=== PATIENT | female | born 1965 | race Caucasian/White ===

== ENCOUNTER 2017-07-07 13:20 | Inpatient (IN) | payer OTHER ==
[2017-07-07 13:42] VITALS: BMI 27.2
[2017-07-07] MEDS ORDERED: guaiFENesin/D-METHORPHAN HB 10 ML UNIT-DOSE CUPS PO PRN (15:15)
[2017-07-07] MEDS ORDERED: MAGNESIUM HYDROX 2400MG/30ML ORAL SUSPENSION 30 ML CUP PO PRN (15:15)
[2017-07-07] MEDS ORDERED: LOPERAMIDE HCL 2 MG CAPSULE PO PRN (15:15)
[2017-07-07] MEDS ORDERED: MAGNESIUM CITRATE 300 ML BOTTLE PO PRN (15:15)
[2017-07-07] MEDS ORDERED: ACETAMINOPHEN 325 MG TABLET (FP) PO PRN (15:15)
[2017-07-07] MEDS ORDERED: NICOTINE POLACRILEX 4 MG GUM BC PRN (15:15)
[2017-07-07] MEDS ORDERED: hydrOXYzine PAMOATE 50 MG CAPSULE (FP) PO PRN (15:15)
[2017-07-07] MEDS ORDERED: IBUPROFEN 400 MG TABLET (FP) PO PRN (15:15)
[2017-07-07] MEDS ORDERED: P-EPHED 60MG/TRIPROLIDI 2.5MG TABLET PO PRN (15:15)
[2017-07-07] MEDS ORDERED: chlordiazePOXIDE HCL 25 MG CAPSULE PO PRN (15:15)
[2017-07-07] MEDS ORDERED: chlordiazePOXIDE HCL 25 MG CAPSULE PO ONE (15:15)
[2017-07-07] MEDS ORDERED: MAG HYDROX/AL HYDROX/SIMETH 30 ML UNIT-DOSE CUP PO PRN (15:15)
[2017-07-07] MEDS ORDERED: MENTHOL/PHENOL 1 EACH UD MM PRN (15:15)
--- NOTE | 2017-07-07 15:15 | HP ---
"CIWA Score - CIWA Score Nausea/Vomitin Muscle Tremors: 3 Anxiety: 3 Agitation: 3 Paroxysmal Sweats: 3 Orientation: 0-Oriented Tacttile Disturbances: 1-Very Mild Itch/Numbness Auditory Disturbances: 0-None Visual Disturbances: 0-None Headache: 3-Moderate CIWA-Ar Total Score: 19 Admission ROS [facility] Chief Complaint: c/o alcohol withdrawal sx Allergies/Adverse Reactions: Allergies Allergy/AdvReac Type Severity Reaction Status Date / Time Penicillins Allergy Severe Hives Verified 07/07/17 14:41 History of Present Illness: 52 yo f with h/o opioid dependence on suboxone, last filled rx for 8mg tid yestereday which she has reportedly been taking but did not take today and has mild opioid withdrawal sx as well as ERIC as she left it at her residence. daily alcohol use with eric reported, has been here 1 year ago for detox and smokes crack cocaoien daily. PMHx HIV/AIDS, hep c, has been taking meds, HTN, did nnot take meds today., schizophrenia, has never attempted suicide no si at this time, h/o alcohol withdrawal seizures last time 1 year ago, no DTS. h/o OD x1 2 years ago. Luisa Bradshaw, 1965 Search Date: 07/07/2017 03:19:32 PM The Drug Utilization Report below displays all of the controlled substance prescriptions, if any, that your patient has filled in the last twelve months. The information displayed on this report is compiled from pharmacy submissions to the Department, and accurately reflects the information as submitted by the pharmacies. This report was requested by: Carlton Serra | Reference #: [id number] Others' Prescriptions Patient Name: Luisa Bradshaw Date: 1965 Address: [address] [place] [address] Sex: Female Rx Written Rx Dispensed Drug Quantity Days Supply Prescriber Name 07/04/2017 07/04/2017 suboxone 8 mg-2 mg sl film 90 30 Calvin Orr MD 06/01/2017 06/03/2017 suboxone 8 mg-2 mg sl film 90 30 Calvin Orr MD 04/29/2017 04/29/2017 suboxone 8 mg-2 mg sl film 90 30 Calvin Orr MD 04/01/2017 04/01/2017 suboxone 8 mg-2 mg sl film 90 30 Calvin Orr MD 02/25/2017 02/25/2017 suboxone 8 mg-2 mg sl film 42 21 Calvin Orr MD 02/25/2017 02/25/2017 suboxone 4 mg-1 mg sl film 21 21 Calvin Orr MD 02/18/2017 02/20/2017 suboxone 8 mg-2 mg sl film 20 10 Calvin Orr MD 02/18/2017 02/20/2017 suboxone 4 mg-1 mg sl film 10 10 Calvin Orr MD 01/26/2017 01/26/2017 suboxone 4 mg-1 mg sl film 21 21 Calvin Orr MD 01/26/2017 01/26/2017 suboxone 8 mg-2 mg sl film 42 21 Calvin Orr MD 12/31/2016 12/31/2016 suboxone 4 mg-1 mg sl film 21 21 Calvin Orr MD 12/31/2016 12/31/2016 suboxone 8 mg-2 mg sl film 42 21 Calvin Orr MD 12/10/2016 12/11/2016 suboxone 8 mg-2 mg sl film 42 21 Calvin Orr MD 12/10/2016 12/11/2016 suboxone 4 mg-1 mg sl film 21 21 Calvin Orr MD 11/19/2016 11/19/2016 suboxone 8 mg-2 mg sl film 42 21 Calvin Orr MD 11/19/2016 11/19/2016 suboxone 4 mg-1 mg sl film 21 21 Calvin Orr MD 10/15/2016 10/15/2016 suboxone 4 mg-1 mg sl film 21 21 Calvin Orr MD 10/15/2016 10/15/2016 suboxone 8 mg-2 mg sl film 42 21 Calvin Orr MD 10/01/2016 10/01/2016 suboxone 4 mg-1 mg sl film 14 14 Calvin Orr MD 10/01/2016 10/01/2016 suboxone 8 mg-2 mg sl film 28 14 Calvin Orr MD 09/10/2016 09/11/2016 suboxone 4 mg-1 mg sl film 14 14 Calvin Orr MD 09/10/2016 09/11/2016 suboxone 8 mg-2 mg sl film 28 14 Calvin Orr MD 07/30/2016 07/30/2016 suboxone 4 mg-1 mg sl film 30 30 [place] Exam Limitations: No Limitations - Ebola screening Have you traveled outside of the country in the last 21 days: No Have you had contact with anyone from an Ebola affected area: No Have you been sick,other than usual withdrawal symptoms: No Do you have a fever: No - Review of Systems Constitutional: Chills, Diaphoresis, Night Sweats, Weight Stable EENT: reports: Nose Congestion, Other (urti x 2 days) Respiratory: reports: No Symptoms reported Cardiac: reports: No Symptoms Reported GI: reports: Diarrhea, Nausea, Poor Appetite, Poor Fluid Intake, Abdominal cramping : reports: No Symptoms Reported Musculoskeletal: reports: No Symptoms Reported Integumentary: reports: Flushing, Sweating Neuro: reports: Headache, Numbness, Paresthesia, Seizure (1 year ago), Tingling , Tremors, Weakness Endocrine: reports: No Symptoms Reported Hematology: reports: No Symptoms Reported Psychiatric: reports: Judgement Intact, Mood/Affect Appropiate, Orientated x3, Anxious, Depressed Other Systems: Reviewed and Negative Patient History - Patient Medical History Hx Anemia: No Hx Asthma: No Hx Chronic Obstructive Pulmonary Disease (COPD): No Hx Cancer: No Hx Cardiac Disorders: No Hx Congestive Heart Failure: No Hx Hypertension: Yes Hx Hypercholesterolemia: No Hx Pacemaker: No HX Cerebrovascular Accident: No Hx Seizures: Yes (alcohol withdrawal seizure x1 year ago) Hx Dementia: No Hx Diabetes: No Hx Gastrointestinal Disorders: No Hx Liver Disease: No Hx Genitourinary Disorders: No Hx Sexually Transmitted Disorders: No Hx Renal Disease (ESRD): No Hx Thyroid Disease: No Hx Human Immunodeficiency Virus (HIV): Yes Hx Hepatitis C: Yes Hx Depression: Yes Hx Suicide Attempt: No (no si at this time) Hx Bipolar Disorder: Yes Hx Schizophrenia: Yes Other Medical History: h/o od x1 2 years ago - Patient Surgical History Past Surgical History: No Hx Neurologic Surgery: No Hx Cataract Extraction: No Hx Cardiac Surgery: No Hx Lung Surgery: No Hx Breast Surgery: No Hx Breast Biopsy: No Hx Abdominal Surgery: No Hx Appendectomy: No Hx Cholecystectomy: No Hx Genitourinary Surgery: No Hx Section: No Hx Orthopedic Surgery: No Anesthesia Reaction: No - PPD History Previous Implant?: No Date: 08/04/15 Results: 0.00 PPD to be Administered?: Yes - Reproductive History Patient is a Female of Child Bearing Age (11 -55 yrs old): Yes Last Menstrual Period: 12/12/15 Patient : No - Smoking Cessation Smoking history: Current every day smoker Have you smoked in the past 12 months: Yes Aproximately how many cigarettes per day: 20 Cigars Per Day: 20 Hx Chewing Tobacco Use: No Initiated information on smoking cessation: No 'Breaking Loose' booklet given: 07/07/17 - Substance & Tx. History Hx Alcohol Use: Yes Hx Substance Use: Yes Substance Use Type: Alcohol, Cocaine, Heroin, Opiates Hx Substance Use Treatment: Yes ([facility] live in residence, on suxboxone maintenance treatment) - Substances Abused Alcohol Route: Oral Frequency: Daily Amount used: liquor- 1 pint, beer- 1 six pack Age of first use: 17 Date of Last Use: 07/06/17 Crack Route: Smoking Frequency: Daily Amount used: 10 bags Age of first use: 17 Date of Last Use: 07/06/17 Family Disease History - Family Disease History Family History: Denies Admission Physical Exam BHS - Vital Signs Vital Signs: Vital Signs - 24 hr 07/07/17 13:41 Temperature 97 F L Pulse Rate 77 Respiratory 20 Rate Blood Pressure 148/103 - Physical General Appearance: Yes: Nourished, Appropriately Dressed, Disheveled, Mild Distress, Tremorous, Irritable, Sweating, Anxious HEENTM: Yes: EOMI, Hearing grossly Normal, Normocephalic, Normal Voice, JAMES, Pharynx Normal, Nasal Congestion, Rhinorrhea Respiratory: Yes: Within Normal Limits, Chest Non-Tender, Lungs Clear, Normal Breath Sounds, No Respiratory Distress, No Accessory Muscle Use Neck: Yes: Within Normal Limits, No masses,lesions,Nodules, Supple, Trachea in good position Breast: Yes: Breast Exam Deferred Cardiology: Yes: Within Normal Limits, Regular Rhythm, Regular Rate, S1, S2 Abdominal: Yes: Normal Bowel Sounds, Non Tender, Flat, Soft, Increased Bowel Sounds Genitourinary: Yes: Within Normal Limits Extremities: Yes: Normal Capillary Refill, Normal Range of Motion, Non-Tender, Tremors Neurological: Yes: administrative support technician II-XII NML intact, Fully Oriented, Alert, Motor Strength 5/5, Normal Response, Depressed Affect Integumentary: Yes: Normal Color, Warm, Diaphoresis, Moist, Other (poor skin turgor) Lymphatic: Yes: Within Normal Limits - Addiitonal Findings: withdrawal sx, mild opioid withdrawaql from not taking suboxone x2 days even though recently filled prescription will start on 8mg daily only. dehyedation noted - Diagnostic (1) Alcohol dependence with uncomplicated withdrawal Current Visit: No Status: Acute (2) Cocaine dependence Current Visit: No Status: Acute Qualifiers: (3) Nicotine dependence Current Visit: No Status: Acute Qualifiers: (4) Opioid dependence on agonist therapy Current Visit: No Status: Acute (5) Schizophrenia, paranoid type Current Visit: No Status: Acute (6) HIV (human immunodeficiency virus infection) Current Visit: No Status: Chronic (7) Hepatitis C Current Visit: No Status: Chronic Qualifiers: (8) Essential hypertension Current Visit: Yes Status: Acute Cleared for Admission [facility] - Detox or Rehab [facility] Level of Care: Medically Managed Detox Regimen/Protocol: Librium [facility] Breath Alcohol Content Breath Alcohol Content: 0 Urine Pregancy Test - Result Urine Test Results: Negative- NO Line Present Urine Drug Screen - Results Drug Screen Negative: No Urine Drug Screen Results: SHANNAN-Cocaine"
[2017-07-07] MEDS ORDERED: BUPRENORPHINE/NALOXONE 8 MG/2 MG FILM PACKET SL SCH (15:30)
[2017-07-07] MEDS ORDERED: BUPRENORPHINE/NALOXONE 2 MG/0.5 MG FILM PACKET SL ONE (15:45)
[2017-07-07] MEDS: amLODIPine BESYLATE 5 MG TABLET (FP) PO SCH (17:19)
[2017-07-07] MEDS: NICOTINE 21 MG/24 HOURS TOPICAL PATCH TD SCH (17:19)
[2017-07-07] MEDS: chlordiazePOXIDE HCL 25 MG CAPSULE PO SCH ×2 (17:19→22:29)
[2017-07-07] MEDS: THIAMINE HCL 100 MG TABLET (FP) PO SCH (22:28)
[2017-07-08 01:48] LABS: URINE APPEARANCE CLOUDY; URINE BILIRUBIN NEGATIVE (NEGATIVE); URINE BLOOD NEGATIVE (NEGATIVE); URINE COLOR AMBER; URINE GLUCOSE (UA) NEGATIVE (NEGATIVE); URINE KETONE NEGATIVE (NEGATIVE); URINE NITRITE NEGATIVE (NEGATIVE); URINE PROTEIN NEGATIVE (NEGATIVE); URINE UROBILINOGEN 4.0 E.U/dl mg/dL (0.2-1.0)
[2017-07-08] MEDS: chlordiazePOXIDE HCL 25 MG CAPSULE PO SCH ×4 (05:36→22:34)
[2017-07-08] MEDS: PRENATAL VITAMINS W/ FOLIC ACID TABLET (FP) PO SCH (10:13)
[2017-07-08] MEDS: BUPRENORPHINE/NALOXONE 8 MG/2 MG FILM PACKET SL SCH (10:13)
[2017-07-08] MEDS: amLODIPine BESYLATE 5 MG TABLET (FP) PO SCH (10:14)
[2017-07-08] MEDS: NICOTINE 21 MG/24 HOURS TOPICAL PATCH TD SCH (10:14)
[2017-07-08] MEDS: OLANZapine 5 MG TABLET PO SCH (10:16)
[2017-07-08 10:18] LABS: MCH 33.2 pg (25.7-33.7); MCHC 33.2 g/dl (32.0-36.0); MEAN CELL VOLUME 100.2 fl (80-96); MEAN PLT VOLUME 11.7 fl (7.5-11.1); PLATELET COUNT 86 K/MM3 (134-434); RDW 13.5 % (11.6-15.6); WHITE BLOOD COUNT 3.9 K/mm3 (4.0-10.0)
--- NOTE | 2017-07-08 10:23 | CONSULT ---
[facility] Psychiatric Consult - Data Date of interview: 07/08/17 Admission source: [facility] Identifying data: This is 52 years old female with hiostory of Sdchizophrenia, history of psychiatric hospitalizations, intoxicated with: Alcohol, Cocaine and Nicotine Substance Abuse History: - Smoking Cessation. Smoking history: Current every day smoker. Have you smoked in the past 12 months: Yes. Aproximately how many cigarettes per day: 20. Cigars Per Day: 20. Hx Chewing Tobacco Use: No. Initiated information on smoking cessation: No. 'Breaking Loose' booklet given : 07/07/17. - Substance & Tx. History. Hx Alcohol Use: Yes. Hx Substance Use : Yes. Substance Use Type: Alcohol, Cocaine, Heroin, Opiates. Hx Substance Use Treatment: Yes ([facility] live in residence, on suxboxone maintenance treatment). - Substances Abused. Alcohol. Route: Oral. Frequency: Daily. Amount used: liquor- 1 pint, beer- 1 six pack. Age of first use: 17. Date of Last Use: 07/06/17. Crack. Route: Smoking. Frequency: Daily. Amount used: 10 bags. Age of first use: 17. Date of Last Use: 07/06/17 Medical History: HIV+, Hep C+ Psychiatric History: Patoent reports history of Paranoid Schizophrenia wiht most recent psychiatric admission on: 2017 at [facility] due to auditory hallucinations. Patoient reports taking prior to admission: Depakote ER 500mg po qhs. Zyprexa 5mg po qhs Physical/Sexual Abuse/Trauma History: Denies Additional Comment: Depakote ER 500mg po qhs. Zyprexa 5mg po qhs Mental Status Exam - Mental Status Exam Alert and Oriented to: Person Cognitive Function: Fair Patient Appearance: Unkempt Mood: Sad Affect: Flat Patient Behavior: Sedated Speech Pattern: Delayed Voice Loudness: Mildly Soft/Quiet Thought Process: Circumstantial Thought Disorder: Being Controlled Hallucinations: Denies Suicidal Ideation: Denies Homicidal Ideation: Denies Insight/Judgement: Fair Sleep: Difficulty falling asleep Appetite: Fair Muscle strength/Tone: Mild Hypotonicity Gait/Station: Shuffling Additional Comments: Depakote ER 500mg po qhs. Zyprexa 5mg po qhs Psychiatric Findings - Problem List ([place] 1, 2,3) (1) Alcohol dependence with uncomplicated withdrawal Current Visit: No Status: Acute (2) Alcohol dependence with withdrawal Current Visit: No Status: Acute (3) Cocaine dependence Current Visit: No Status: Acute Qualifiers: (4) EtOH dependence Current Visit: No Status: Acute (5) Nicotine dependence Current Visit: No Status: Acute Qualifiers: (6) Opioid dependence on agonist therapy Current Visit: No Status: Acute (7) Schizophrenia, paranoid type Current Visit: No Status: Acute (8) Xanax use disorder, moderate, dependence Current Visit: No Status: Acute - Initial Treatment Plan Initial Treatment Plan: Depakote ER 500mg po qhs. Zyprexa 5mg po qhs. Depakote blood level
[2017-07-08 10:53] LABS: ALBUMIN 2.9 g/dl (3.4-5.0); ALK PHOS 132 U/L (45-117); ANION GAP 9 (8-16); CALCIUM 8.2 mg/dL (8.5-10.1); CO2 27 mmol/L (21-32); CREATININE 0.7 mg/dL (0.55-1.02); GLUCOSE,RANDOM 149 mg/dL (74-106); SGOT/AST 95 U/L (15-37); SGPT/ALT 117 U/L (12-78); TOT PROT 6.5 g/dl (6.4-8.2)
--- NOTE | 2017-07-08 11:18 | PN ---
S CIWA - CIWA Score Nausea/Vomitin-No Nausea/No Vomiting Muscle Tremors: 4-Moderate,w/Arms Extend Anxiety: 3 Agitation: 3 Paroxysmal Sweats: 3 Orientation: 0-Oriented Tacttile Disturbances: 0-None Auditory Disturbances: 0-None Visual Disturbances: 0-None Headache: 0-None Present CIWA-Ar Total Score: 13 BHS Progress Note (SOAP) Subjective: sweats shakes interrupted sleep agitation anxiety Objective: 07/08/17 11:17 Vital Signs Temperature 98.2 F 07/08/17 11:11 Pulse Rate 63 07/08/17 11:11 Respiratory Rate 20 07/08/17 11:11 Blood Pressure 113/71 07/08/17 11:11 O2 Sat by Pulse Oximetry (%) Laboratory Tests 07/07/17 07/08/17 07/08/17 18:22 07:00 07:00 WBC 3.9 L D RBC 3.49 L Hgb 11.6 Hct 35.0 MCV 100.2 H MCH 33.2 MCHC 33.2 RDW 13.5 D Plt Count 86 L MPV 11.7 H Sodium 142 Potassium 3.2 L Chloride 106 Carbon Dioxide 27 Anion Gap 9 BUN 9 D Creatinine 0.7 Creat Clearance w eGFR > 60 Random Glucose 149 H Calcium 8.2 L Total Bilirubin 1.0 D AST 95 H D ALT 117 H D Alkaline Phosphatase 132 H D Total Protein 6.5 Albumin 2.9 L Urine Color Shana Urine Appearance Cloudy Urine pH 6.0 Ur Specific [place] 1.027 Urine Protein Negative Urine Glucose (UA) Negative Urine Ketones Negative Urine Blood Negative Urine Nitrite Negative Urine Bilirubin Negative Urine Urobilinogen 4.0 e.u/dl H potassium 3.2; replenish with 20meq k-dur aaox3 ambulating no acute distress Assessment: 07/08/17 11:17 withdrawal sx Plan: continue detox increase fluids
[2017-07-08 11:48] LABS: URINE LEUK ESTERASE Negative (NEGATIVE)
[2017-07-08] MEDS: POTASSIUM CHLORIDE TABS 20 MEQ TABLET.ER (FP) PO SCH (12:06)
[2017-07-08] MEDS: ABACAVIR/DOLUTEGRAVIR/LAMIVUDI (TRIUMEQ) TABLET -NF PO SCH ×3 (12:07→12:10)
--- NOTE | 2017-07-08 14:17 | EKG ---
Test Reason : Blood Pressure : / mmHG Vent. Rate : 060 BPM Atrial Rate : 060 BPM P-R Int : 132 ms QRS Dur : 102 ms QT Int : 440 ms P-R-T Axes : 067 069 036 degrees QTc Int : 440 ms NORMAL SINUS RHYTHM MINIMAL VOLTAGE CRITERIA FOR LVH, MAY BE NORMAL VARIANT BORDERLINE ECG WHEN COMPARED WITH ECG OF 15-NOV-2008 10:52, Confirmed by BRIA MOBLEY MD ([id number]) on 07/08/2017 2:17:24 PM Referred By: Confirmed By:BRIA MOBLEY MD
[2017-07-08] MEDS: THIAMINE HCL 100 MG TABLET (FP) PO SCH (22:34)
[2017-07-08] MEDS: DIVALPROEX NA *ER* EXTEND REL 500 MG TABLET.SA (FP) PO SCH (22:34)
[2017-07-09] MEDS: chlordiazePOXIDE HCL 25 MG CAPSULE PO SCH ×2 (07:19→10:47)
--- NOTE | 2017-07-09 09:53 | PN ---
S CIWA - CIWA Score Nausea/Vomitin-No Nausea/No Vomiting Muscle Tremors: 4-Moderate,w/Arms Extend Anxiety: 3 Agitation: 2 Paroxysmal Sweats: 2 Orientation: 0-Oriented Tacttile Disturbances: 0-None Auditory Disturbances: 0-None Visual Disturbances: 0-None Headache: 1-Very Mild CIWA-Ar Total Score: 12 S Progress Note (SOAP) Subjective: sweats agitation anxiety shakes Objective: 07/09/17 09:54 Vital Signs Temperature 97.5 F L 07/09/17 06:43 Pulse Rate 50 L 07/09/17 06:43 Respiratory Rate 16 07/09/17 06:43 Blood Pressure 116/72 07/09/17 06:43 O2 Sat by Pulse Oximetry (%) Laboratory Tests 07/07/17 07/08/17 07/08/17 18:22 07:00 07:00 WBC 3.9 L D RBC 3.49 L Hgb 11.6 Hct 35.0 MCV 100.2 H MCH 33.2 MCHC 33.2 RDW 13.5 D Plt Count 86 L MPV 11.7 H Sodium 142 Potassium 3.2 L Chloride 106 Carbon Dioxide 27 Anion Gap 9 BUN 9 D Creatinine 0.7 Creat Clearance w eGFR > 60 Random Glucose 149 H Calcium 8.2 L Total Bilirubin 1.0 D AST 95 H D ALT 117 H D Alkaline Phosphatase 132 H D Total Protein 6.5 Albumin 2.9 L Urine Color Shana Urine Appearance Cloudy Urine pH 6.0 Ur Specific [place] 1.027 Urine Protein Negative Urine Glucose (UA) Negative Urine Ketones Negative Urine Blood Negative Urine Nitrite Negative Urine Bilirubin Negative Urine Urobilinogen 4.0 e.u/dl H Ur Leukocyte Esterase Negative RPR Titer 07/08/17 07:00 WBC RBC Hgb Hct MCV MCH MCHC RDW Plt Count MPV Sodium Potassium Chloride Carbon Dioxide Anion Gap BUN Creatinine Creat Clearance w eGFR Random Glucose Calcium Total Bilirubin AST ALT Alkaline Phosphatase Total Protein Albumin Urine Color Urine Appearance Urine pH Ur Specific [place] Urine Protein Urine Glucose (UA) Urine Ketones Urine Blood Urine Nitrite Urine Bilirubin Urine Urobilinogen Ur Leukocyte Esterase RPR Titer Nonreactive aaox3 ambulating no acute distress Assessment: 07/09/17 09:54 withdrawal sx Plan: continue detox increase fluids
[2017-07-09] MEDS: BUPRENORPHINE/NALOXONE 8 MG/2 MG FILM PACKET SL SCH (10:47)
[2017-07-09] MEDS: PRENATAL VITAMINS W/ FOLIC ACID TABLET (FP) PO SCH (10:47)
[2017-07-09] MEDS: amLODIPine BESYLATE 5 MG TABLET (FP) PO SCH (10:47)
[2017-07-09] MEDS: OLANZapine 5 MG TABLET PO SCH (10:47)
[2017-07-09] MEDS: POTASSIUM CHLORIDE TABS 20 MEQ TABLET.ER (FP) PO SCH (10:47)
[2017-07-09] MEDS: ABACAVIR/DOLUTEGRAVIR/LAMIVUDI (TRIUMEQ) TABLET -NF PO SCH (10:48)
[2017-07-09] MEDS: NICOTINE 21 MG/24 HOURS TOPICAL PATCH TD SCH (10:48)
[2017-07-09] MEDS: chlordiazePOXIDE 5 MG CAPSULE PO SCH ×2 (17:38→22:39)
[2017-07-09] MEDS: THIAMINE HCL 100 MG TABLET (FP) PO SCH (22:39)
[2017-07-09] MEDS: DIVALPROEX NA *ER* EXTEND REL 500 MG TABLET.SA (FP) PO SCH (22:39)
[2017-07-10] MEDS: chlordiazePOXIDE 5 MG CAPSULE PO SCH ×2 (05:51→10:36)
--- NOTE | 2017-07-10 08:45 | PN ---
BHS Progress Note (SOAP) Subjective: NAUSEA, SWEATS, INTERRUPTED SLEEP, ANXIETY Objective: 07/10/17 08:44 Vital Signs - 24 hr 07/09/17 07/09/17 07/09/17 10:07 14:18 19:00 Temperature 97.9 F 98.2 F 95.7 F L Pulse Rate 50 L 69 61 Respiratory 18 18 20 Rate Blood Pressure 136/92 141/96 119/73 07/09/17 07/10/17 07/10/17 22:00 00:30 03:30 Temperature 97.9 F Pulse Rate 49 L Respiratory 18 18 18 Rate Blood Pressure 130/82 07/10/17 07/10/17 06:30 06:39 Temperature 97.5 F L Pulse Rate 50 L Respiratory 18 16 Rate Blood Pressure 127/78 Laboratory Tests 07/07/17 07/08/17 07/08/17 18:22 07:00 07:00 WBC 3.9 L D RBC 3.49 L Hgb 11.6 Hct 35.0 MCV 100.2 H MCH 33.2 MCHC 33.2 RDW 13.5 D Plt Count 86 L MPV 11.7 H Sodium 142 Potassium 3.2 L Chloride 106 Carbon Dioxide 27 Anion Gap 9 BUN 9 D Creatinine 0.7 Creat Clearance w eGFR > 60 Random Glucose 149 H Calcium 8.2 L Total Bilirubin 1.0 D AST 95 H D ALT 117 H D Alkaline Phosphatase 132 H D Total Protein 6.5 Albumin 2.9 L Urine Color Shana Urine Appearance Cloudy Urine pH 6.0 Ur Specific [place] 1.027 Urine Protein Negative Urine Glucose (UA) Negative Urine Ketones Negative Urine Blood Negative Urine Nitrite Negative Urine Bilirubin Negative Urine Urobilinogen 4.0 e.u/dl H Ur Leukocyte Esterase Negative Valproic Acid RPR Titer 07/08/17 07/09/17 07:00 06:00 WBC RBC Hgb Hct MCV MCH MCHC RDW Plt Count MPV Sodium Potassium Chloride Carbon Dioxide Anion Gap BUN Creatinine Creat Clearance w eGFR Random Glucose Calcium Total Bilirubin AST ALT Alkaline Phosphatase Total Protein Albumin Urine Color Urine Appearance Urine pH Ur Specific [place] Urine Protein Urine Glucose (UA) Urine Ketones Urine Blood Urine Nitrite Urine Bilirubin Urine Urobilinogen Ur Leukocyte Esterase Valproic Acid 12.136 L RPR Titer Nonreactive LOW K Assessment: 07/10/17 08:44 WITHDRAWAL SX, CONT DETOX, SUPPLEMENT K, FLUIDS
[2017-07-10] MEDS: OLANZapine 5 MG TABLET PO SCH (10:35)
[2017-07-10] MEDS: POTASSIUM CHLORIDE TABS 20 MEQ TABLET.ER (FP) PO SCH (10:35)
[2017-07-10] MEDS: ABACAVIR/DOLUTEGRAVIR/LAMIVUDI (TRIUMEQ) TABLET -NF PO SCH (10:36)
[2017-07-10] MEDS: amLODIPine BESYLATE 5 MG TABLET (FP) PO SCH (10:36)
[2017-07-10] MEDS: PRENATAL VITAMINS W/ FOLIC ACID TABLET (FP) PO SCH (10:36)
[2017-07-10] MEDS: BUPRENORPHINE/NALOXONE 8 MG/2 MG FILM PACKET SL SCH (10:36)
[2017-07-10] MEDS: NICOTINE 21 MG/24 HOURS TOPICAL PATCH TD SCH (10:47)
[2017-07-10] MEDS ORDERED: amLODIPine BESYLATE 5 MG TABLET (FP) PO ONE (11:30)
[2017-07-10] MEDS: chlordiazePOXIDE HCL 10 MG CAPSULE PO SCH ×2 (17:37→22:58)
[2017-07-10] MEDS: THIAMINE HCL 100 MG TABLET (FP) PO SCH (22:58)
[2017-07-10] MEDS: DIVALPROEX NA *ER* EXTEND REL 500 MG TABLET.SA (FP) PO SCH (22:58)
[2017-07-11] MEDS: chlordiazePOXIDE HCL 10 MG CAPSULE PO SCH (06:04)
[2017-07-11 06:38] VITALS: BP 127/77; PULSE 49; TEMP 97.5
--- NOTE | 2017-07-11 08:51 | DS ---
[facility] Detox Discharge Summary Admission Date: 07/07/17 Discharge Date: 07/11/17 - History Present History: Alcohol Dependence, Cocaine Dependence, Sedative Dependence - Physical Exam Results Vital Signs: Vital Signs Temperature 97.5 F L 07/11/17 06:00 Pulse Rate 49 L 07/11/17 06:00 Respiratory Rate 18 07/11/17 06:00 Blood Pressure 127/77 07/11/17 06:00 O2 Sat by Pulse Oximetry (%) - Treatment Hospital Course: Detox Protocol Followed, Detoxed Safely, Responded well, Discharged Condition Good, Rehab Referral Accepted - Medication Discharge Medications: Ambulatory Orders Divalproex *ER* [Depakote *ER* -] 500 mg PO DAILY #30 tablet.sa 07/08/17 Olanzapine 5 mg PO DAILY #30 tablet 07/08/17 Abacavir/Dolutegravir/Lamivudi [Triumeq Tablet] 1 each PO DAILY #30 tablet 07/10 Amlodipine Besylate [Norvasc -] 5 mg PO DAILY #30 tablet 07/10/17 Buprenorphine HCl/Naloxone HCl [Suboxone 12 mg-3 mg Sl Film] 1 each SL DAILY #7 film MDD 1 07/10/17 - Diagnosis (1) Essential hypertension Current Visit: Yes Status: Chronic (2) Alcohol dependence with uncomplicated withdrawal Current Visit: No Status: Chronic (3) Cocaine dependence Current Visit: No Status: Chronic Qualifiers: Substance use status: uncomplicated (4) Depression Current Visit: No Status: Acute Qualifiers: Depression Type: major depressive disorder Major depression recurrence: recurrent Major depression episode severity: moderate (5) Encounter for monitoring Suboxone maintenance therapy Current Visit: No Status: Chronic (6) Nicotine dependence Current Visit: No Status: Chronic Qualifiers: Nicotine product type: cigarettes Substance use status: uncomplicated Qualified Code(s): F17.210 - Nicotine dependence, cigarettes, uncomplicated (7) Opioid dependence on agonist therapy Current Visit: No Status: Acute (8) QT prolongation Current Visit: No Status: Acute (9) Schizophrenia, paranoid type Current Visit: No Status: Acute (10) Xanax use disorder, moderate, dependence Current Visit: No Status: Acute (11) HIV (human immunodeficiency virus infection) Current Visit: No Status: Chronic (12) Hepatitis C Current Visit: No Status: Chronic Qualifiers: Viral hepatitis chronicity: chronic Hepatic coma status: without hepatic coma Qualified Code(s): B18.2 - Chronic viral hepatitis C - AMA Did Patient Leave Against Medical Advice: No (going to [facility] rehab)
[2017-07-11] MEDS: POTASSIUM CHLORIDE TABS 20 MEQ TABLET.ER (FP) PO SCH (09:43)
[2017-07-11] MEDS: PRENATAL VITAMINS W/ FOLIC ACID TABLET (FP) PO SCH (09:43)
[2017-07-11] MEDS: BUPRENORPHINE/NALOXONE 8 MG/2 MG FILM PACKET SL SCH (09:43)
[2017-07-11] MEDS: OLANZapine 5 MG TABLET PO SCH (09:44)
[2017-07-11] MEDS: NICOTINE 21 MG/24 HOURS TOPICAL PATCH TD SCH (09:45)
[2017-07-11] MEDS ORDERED: amLODIPine BESYLATE 10 MG TABLET (FP) PO SCH (10:00)
== END 2017-07-11 09:51 | disposition other institution (70) | DRG 773 ==
LOC: YASAS 13:20 → Y6N 15:09
PROVIDERS: ADMIT Internal Medicine; ATTEND Internal Medicine
PROC: HZ2ZZZZ Detoxification Services for Substance Abuse Treatment (ICD-10-PCS; principal; 2017-07-07)
DX: F11.20 Opioid dependence, uncomplicated (principal); F13.230 Sedative, hypnotic or anxiolytic dependence with withdrawal, uncomplicated; F10.230 Alcohol dependence with withdrawal, uncomplicated; F14.20 Cocaine dependence, uncomplicated; F17.213 Nicotine dependence, cigarettes, with withdrawal; F33.1 Major depressive disorder, recurrent, moderate; F20.0 Paranoid schizophrenia; Z21 Asymptomatic human immunodeficiency virus [HIV] infection status; B18.2 Chronic viral hepatitis C; Z86.69 Personal history of other diseases of the nervous system and sense organs
CPT/HCPCS: 36415; 80053; 80164; 81003; 85027; 86593; 93005; 93010

== ENCOUNTER 2017-07-11 10:25 | Inpatient (IN) | payer OTHER ==
[2017-07-11 10:54] VITALS: BMI 27.8
[2017-07-11] MEDS: OLANZapine 5 MG TABLET PO SCH (11:34)
[2017-07-11] MEDS ORDERED: MAG HYDROX/AL HYDROX/SIMETH 30 ML UNIT-DOSE CUP PO PRN (12:15)
[2017-07-11] MEDS ORDERED: MENTHOL/PHENOL 1 EACH UD MM PRN (12:15)
[2017-07-11] MEDS ORDERED: MAGNESIUM HYDROX 2400MG/30ML ORAL SUSPENSION 30 ML CUP PO PRN (12:15)
[2017-07-11] MEDS ORDERED: ACETAMINOPHEN 325 MG TABLET (FP) PO PRN (12:15)
[2017-07-11] MEDS ORDERED: P-EPHED 60MG/TRIPROLIDI 2.5MG TABLET PO PRN (12:15)
[2017-07-11] MEDS ORDERED: MAGNESIUM CITRATE 300 ML BOTTLE PO PRN (12:15)
[2017-07-11] MEDS ORDERED: LOPERAMIDE HCL 2 MG CAPSULE PO PRN (12:15)
[2017-07-11] MEDS ORDERED: guaiFENesin/D-METHORPHAN HB 10 ML UNIT-DOSE CUPS PO PRN (12:15)
[2017-07-11] MEDS ORDERED: IBUPROFEN 400 MG TABLET (FP) PO PRN (12:15)
[2017-07-11] MEDS ORDERED: hydrOXYzine PAMOATE 50 MG CAPSULE (FP) PO PRN (12:15)
--- NOTE | 2017-07-11 12:15 | HP ---
[facility] Rehab Assess/Revision - Admission History Admitted to Rehab from: [facility] [address] [place] Date of Admission to Rehab: 07/11/17 - Vital signs Vital Signs: Vital Signs Period Temp Pulse Resp BP Sys/Zaragoza Pulse Ox Last 24 Hr 98.2 F-98.2 F 73-73 18-18 147-147/92-92 - Findings Detox History & Physical reviewed: Yes Concur with findings: Yes Comments/Additional Findings: FOR REHAB PROTOCOL Inpatient Rehab Admission - Initial Determination Are CD services needed?: Yes Free of communicable disease: Yes Not in need of hospitalization: Yes - Rehab Admission Criteria Previous failed treatment: Yes Poor recovery environment: Yes Comorbidities: Yes Patient is meeting Inpatient Rehab admission criteria:: Yes
[2017-07-11] MEDS ORDERED: ALBUTEROL SO4 18 GM HFA INHALER IH PRN (12:16)
[2017-07-11] MEDS: THIAMINE HCL 100 MG TABLET (FP) PO SCH (21:32)
[2017-07-11] MEDS: DIVALPROEX NA *ER* EXTEND REL 500 MG TABLET.SA (FP) PO SCH (22:25)
--- NOTE | 2017-07-12 09:05 | HP ---
Psychiatrist Admission - Data Date of interview: 07/12/17 Admission source: [address] [place] [address] Identifying data: This is the first admission for this 52 years old H single chikldless female,residing in Supportive housing,on [employer] benefits. Medical History: Significant for HIV,Hep C,HTN. Vital Signs: Vital Signs - 24 hr 07/11/17 07/11/17 07/12/17 10:27 10:52 00:30 Temperature 98.2 F 98.2 F Pulse Rate 73 73 Respiratory 18 18 18 Rate Blood Pressure 147/92 147/92 07/12/17 07/12/17 03:30 06:53 Temperature 98.1 F Pulse Rate 59 L Respiratory 18 16 Rate Blood Pressure 114/69 Allergies/Adverse Reactions: Allergies Allergy/AdvReac Type Severity Reaction Status Date / Time Penicillins Allergy Severe Hives Verified 07/07/17 14:41 Date of last physical exam: 07/07/17 Concur with the findings of this exam: Yes - Substance Abuse/Tx History Hx Alcohol Use: Yes Hx Substance Use: Yes Substance Use Type: Alcohol, Cocaine Hx Substance Use Treatment: Yes Psychiatric Findings - Problem List ([place] 1, 2,3) (1) Opioid dependence on agonist therapy Current Visit: Yes Status: Chronic (2) Schizophrenia, paranoid type Current Visit: Yes Status: Chronic (3) Cocaine dependence Current Visit: Yes Status: Chronic Qualifiers: (4) Essential hypertension Current Visit: Yes Status: Chronic (5) HIV (human immunodeficiency virus infection) Current Visit: Yes Status: Chronic (6) Hepatitis C Current Visit: Yes Status: Chronic Qualifiers: (7) Anxiolytic dependence Current Visit: Yes Status: Chronic - Initial Treatment Plan Initial Treatment Plan: Depakote 500 mg po hs and Zyprexa 5 mg po hs. Will monitor progress.
[2017-07-12] MEDS: NICOTINE 21 MG/24 HOURS TOPICAL PATCH TD SCH (10:26)
[2017-07-12] MEDS: amLODIPine BESYLATE 5 MG TABLET (FP) PO SCH (10:27)
[2017-07-12] MEDS: OLANZapine 5 MG TABLET PO SCH (10:27)
[2017-07-12] MEDS: PRENATAL VITAMINS W/ FOLIC ACID TABLET (FP) PO SCH (10:27)
[2017-07-12 10:29] LABS: ANION GAP 7 (8-16); CALCIUM 8.4 mg/dL (8.5-10.1); CO2 27 mmol/L (21-32); CREATININE 0.6 mg/dL (0.55-1.02); GLUCOSE,RANDOM 110 mg/dL (74-106)
[2017-07-12] MEDS: BUPRENORPHINE/NALOXONE 8 MG/2 MG FILM PACKET SL SCH (10:29)
[2017-07-12] MEDS: ABACAVIR/DOLUTEGRAVIR/LAMIVUDI (TRIUMEQ) TABLET -NF PO SCH (10:53)
[2017-07-12] MEDS ORDERED: PT OWN MED DRAWER 7, Y5N ONE (11:05)
--- NOTE | 2017-07-12 15:28 | PN ---
S Progress Note Note: PATIENT COMPLAINED OF EPIGASTRIC PAIN BP 143/83,P70,R20,T 98.1 PULSE OXYMETRY IS 100 EKG NSR,NORMAL ECG COMFORTABLE CLOSE MONITORING MYLANTA 30 CC PO NOW PAIN RELIEVED CLOSE MONITORING
[2017-07-12] MEDS: DIVALPROEX NA *ER* EXTEND REL 500 MG TABLET.SA (FP) PO SCH (21:57)
[2017-07-12] MEDS: THIAMINE HCL 100 MG TABLET (FP) PO SCH (21:57)
[2017-07-13] MEDS ORDERED: PT OWN MED DRAWER 7, Y5N ONE ×2 (01:05→08:44)
[2017-07-13] MEDS: ABACAVIR/DOLUTEGRAVIR/LAMIVUDI (TRIUMEQ) TABLET -NF PO SCH (10:06)
[2017-07-13] MEDS: BUPRENORPHINE/NALOXONE 8 MG/2 MG FILM PACKET SL SCH (10:06)
[2017-07-13] MEDS: PRENATAL VITAMINS W/ FOLIC ACID TABLET (FP) PO SCH (10:06)
[2017-07-13] MEDS: OLANZapine 5 MG TABLET PO SCH (10:06)
[2017-07-13] MEDS: amLODIPine BESYLATE 5 MG TABLET (FP) PO SCH (10:06)
[2017-07-13] MEDS: NICOTINE 21 MG/24 HOURS TOPICAL PATCH TD SCH (10:07)
[2017-07-13] MEDS: DIVALPROEX NA *ER* EXTEND REL 500 MG TABLET.SA (FP) PO SCH (21:11)
[2017-07-13] MEDS: THIAMINE HCL 100 MG TABLET (FP) PO SCH (21:11)
[2017-07-14 07:22] VITALS: TEMP 98
[2017-07-14] MEDS ORDERED: PT OWN MED DRAWER 7, Y5N ONE (09:27)
[2017-07-14 09:40] VITALS: BP 144/85; PULSE 73
[2017-07-14] MEDS: NICOTINE 21 MG/24 HOURS TOPICAL PATCH TD SCH (10:10)
[2017-07-14] MEDS: BUPRENORPHINE/NALOXONE 8 MG/2 MG FILM PACKET SL SCH (10:10)
[2017-07-14] MEDS: PRENATAL VITAMINS W/ FOLIC ACID TABLET (FP) PO SCH (10:11)
[2017-07-14] MEDS: OLANZapine 5 MG TABLET PO SCH (10:11)
[2017-07-14] MEDS: amLODIPine BESYLATE 5 MG TABLET (FP) PO SCH (10:11)
[2017-07-14] MEDS: ABACAVIR/DOLUTEGRAVIR/LAMIVUDI (TRIUMEQ) TABLET -NF PO SCH (10:12)
--- NOTE | 2017-07-16 01:05 | EKG ---
Test Reason : Blood Pressure : / mmHG Vent. Rate : 062 BPM Atrial Rate : 062 BPM P-R Int : 134 ms QRS Dur : 104 ms QT Int : 466 ms P-R-T Axes : 061 057 026 degrees QTc Int : 472 ms NORMAL SINUS RHYTHM NORMAL ECG WHEN COMPARED WITH ECG OF 07-JUL-2017 17:26, NO SIGNIFICANT CHANGE WAS FOUND Confirmed by BRIA MOBLEY MD ([id number]) on 07/16/2017 1:05:10 AM Referred By: Confirmed By:BRIA MOBLEY MD
== END 2017-07-14 11:47 | disposition left against medical advice (07) | DRG 770 ==
LOC: YASAS 10:25 → Y3E 10:26
PROVIDERS: ADMIT Psychiatry & Neurology Psychiatry; ATTEND Psychiatry & Neurology Psychiatry
PROC: HZ2ZZZZ Detoxification Services for Substance Abuse Treatment (ICD-10-PCS; principal; 2017-07-11)
DX: F11.23 Opioid dependence with withdrawal (principal); F13.230 Sedative, hypnotic or anxiolytic dependence with withdrawal, uncomplicated; F14.20 Cocaine dependence, uncomplicated; F20.0 Paranoid schizophrenia; F32.9 Major depressive disorder, single episode, unspecified; B18.2 Chronic viral hepatitis C; I10 Essential (primary) hypertension; R94.31 Abnormal electrocardiogram [ECG] [EKG]; Z21 Asymptomatic human immunodeficiency virus [HIV] infection status
CPT/HCPCS: 36415; 80048; 93005; 93010

== ENCOUNTER 2017-12-19 15:35 | Inpatient (IN) | payer OTHER ==
[2017-12-19 17:40] VITALS: BMI 31.2
--- NOTE | 2017-12-19 18:24 | HP ---
CIWA Score - CIWA Score Nausea/Vomitin-Mild Nausea/No Vomiting Muscle Tremors: 3 Anxiety: 3 Agitation: 2 Paroxysmal Sweats: 2 Orientation: 1-Uncertain about Date (reports date as Dec 18 2017) Tacttile Disturbances: 0-None Auditory Disturbances: 0-None Visual Disturbances: 0-None Headache: 2-Mild CIWA-Ar Total Score: 14 Admission [facility] Chief Complaint: " My hands are shaky, im here for detox" Allergies/Adverse Reactions: Allergies Allergy/AdvReac Type Severity Reaction Status Date / Time Penicillins Allergy Severe Hives Verified 12/19/17 17:39 History of Present Illness: 52 yo female with h/o alcohol, and cocaine, nicotine and opioid dependence on suboxone, last filled rx for 32 mg ( 8mg film x 3) 12/05/17, rx Caitlyn Cartwright quantity #90, reports she has been taking. PMHx HIV, Hep c, has been taking meds, HTN, schizophrenia with auditory hallucinations, depression. Denies suicidal / homicidal ideation. Reports hx of suicide two months ago by overdosing on pills because she felt depressed. Last detox at [facility] June 2017. Longest period of sobriety 6 months Reports alcohol withdrawal seizures last time 1 year ago, no DTS. h/o OD x 12 years ago. Search Terms: Luisa Bradshaw, 1965 Search Date: 12/19/2017 06:16:47 PM The Drug Utilization Report below displays all of the controlled substance prescriptions, if any, that your patient has filled in the last twelve months. The information displayed on this report is compiled from pharmacy submissions to the Department, and accurately reflects the information as submitted by the pharmacies. This report was requested by: Muna Cortez | Reference #: [id number] Others' Prescriptions Patient Name: Luisa Bradshaw Date: 1965 Address: [address] [place] [address] Sex: Female Rx Written Rx Dispensed Drug Quantity Days Supply Prescriber Name 07/04/2017 07/04/2017 suboxone 8 mg-2 mg sl film 90 30 Calvin Orr MD 06/01/2017 06/03/2017 suboxone 8 mg-2 mg sl film 90 30 Calvin Orr MD 04/29/2017 04/29/2017 suboxone 8 mg-2 mg sl film 90 30 Calvin Orr MD 04/01/2017 04/01/2017 suboxone 8 mg-2 mg sl film 90 30 Calvin Orr MD 02/25/2017 02/25/2017 suboxone 8 mg-2 mg sl film 42 21 Calvin Orr MD 02/25/2017 02/25/2017 suboxone 4 mg-1 mg sl film 21 21 Calvin Orr MD 02/18/2017 02/20/2017 suboxone 8 mg-2 mg sl film 20 10 Calvin Orr MD 02/18/2017 02/20/2017 suboxone 4 mg-1 mg sl film 10 10 Calvin Orr MD 01/26/2017 01/26/2017 suboxone 4 mg-1 mg sl film 21 21 Calvin Orr MD 01/26/2017 01/26/2017 suboxone 8 mg-2 mg sl film 42 21 Calvin Orr MD 12/31/2016 12/31/2016 suboxone 4 mg-1 mg sl film 21 21 Calvin Orr MD 12/31/2016 12/31/2016 suboxone 8 mg-2 mg sl film 42 21 Calvin Orr MD Exam Limitations: No Limitations - Ebola screening Have you traveled outside of the country in the last 21 days: No Have you had contact with anyone from an Ebola affected area: No Have you been sick,other than usual withdrawal symptoms: No Do you have a fever: No - Review of Systems Constitutional: Chills, Changes in sleep EENT: reports: Other (double vision x 1 month and followed by PCP) Respiratory: reports: No Symptoms reported Cardiac: reports: No Symptoms Reported GI: reports: Diarrhea, Nausea, Poor Fluid Intake Musculoskeletal: reports: Back Pain (low midline) Integumentary: reports: No Symptoms Reported Neuro: reports: Headache, Tremors Endocrine: reports: Increased Thirst Hematology: reports: No Symptoms Reported Psychiatric: reports: Orientated x3, Anxious Other Systems: Reviewed and Negative Patient History - Patient Medical History Hx Anemia: No Hx Asthma: Yes Hx Chronic Obstructive Pulmonary Disease (COPD): No Hx Cancer: No Hx Cardiac Disorders: No Hx Congestive Heart Failure: No Hx Hypertension: Yes Hx Hypercholesterolemia: No Hx Pacemaker: No HX Cerebrovascular Accident: No Hx Seizures: Yes (alcohol related 1 year ago) Hx Dementia: No Hx Diabetes: No Hx Gastrointestinal Disorders: No Hx Liver Disease: Yes (Hep C) Hx Genitourinary Disorders: No Hx Sexually Transmitted Disorders: Yes (HIV since 1971, reports sompliance with meds) Hx Renal Disease (ESRD): No Hx Thyroid Disease: No Hx Human Immunodeficiency Virus (HIV): Yes Hx Hepatitis C: Yes Hx Depression: Yes (two months ago ) Hx Suicide Attempt: No Hx Bipolar Disorder: Yes Hx Schizophrenia: Yes - Patient Surgical History Past Surgical History: No Hx Neurologic Surgery: No Hx Cataract Extraction: No Hx Cardiac Surgery: No Hx Lung Surgery: No Hx Breast Surgery: No Hx Breast Biopsy: No Hx Abdominal Surgery: No Hx Appendectomy: No Hx Cholecystectomy: No Hx Genitourinary Surgery: No Hx Section: No Hx Orthopedic Surgery: No Anesthesia Reaction: No - PPD History Previous Implant?: Yes Documented Results: Negative w/proof Date: 07/09/17 Results: 0mm PPD to be Administered?: No - Reproductive History Patient is a Female of Child Bearing Age (11 -55 yrs old): Yes Last Menstrual Period: 12/11/17 Patient : No - Smoking Cessation Smoking history: Current every day smoker Have you smoked in the past 12 months: Yes Aproximately how many cigarettes per day: 20 Cigars Per Day: 20 Hx Chewing Tobacco Use: No Initiated information on smoking cessation: Yes 'Breaking Loose' booklet given: 12/19/17 - Substance & Tx. History Hx Alcohol Use: Yes Hx Substance Use: Yes Substance Use Type: Alcohol, Cocaine Hx Substance Use Treatment: Yes ([facility] June 2017) - Substances Abused Alcohol Route: Oral Frequency: Daily Amount used: liquor- 2 pints, beer- 3 six pack Age of first use: 16 Date of Last Use: 12/18/17 Cocaine Route: Inhalation Frequency: Daily Amount used: 5 bags Age of first use: 16 Date of Last Use: 12/18/17 Family Disease History - Family Disease History Family Disease History: Other: Father (unknown ), Mother (, cancer breast ) Admission Physical Exam BHS - Vital Signs Vital Signs: Vital Signs - 24 hr 12/19/17 17:35 Temperature 98.2 F Pulse Rate 58 L Respiratory 18 Rate Blood Pressure 140/83 - Physical General Appearance: Yes: Disheveled, Anxious, Other (malodorous) HEENTM: Yes: EOMI, Hearing grossly Normal, Normal ENT Inspection, Normocephalic , Normal Voice, JAMES, Pharynx Normal, Tm's normal Respiratory: Yes: Chest Non-Tender, Lungs Clear, Normal Breath Sounds, No Respiratory Distress, No Accessory Muscle Use Neck: Yes: No masses,lesions,Nodules, Trachea in good position Breast: Yes: Breast Exam Deferred Cardiology: Yes: Regular Rhythm, Regular Rate, Murmur Abdominal: Yes: Normal Bowel Sounds, Non Tender, Flat, Soft Genitourinary: Yes: Within Normal Limits Back: Yes: Normal Inspection Musculoskeletal: Yes: full range of Motion, Pelvis Stable, Back pain Extremities: Yes: Normal Capillary Refill, Normal Inspection, Normal Range of Motion, Non-Tender, Tremors Neurological: Yes: superintendent maintenance II-XII NML intact, Fully Oriented, Alert, Motor Strength 5/5, Depressed Affect Integumentary: Yes: Normal Color, Warm, Diaphoresis Lymphatic: Yes: Within Normal Limits - Diagnostic (1) Psychiatric disorder Current Visit: Yes Status: Suspected (2) Alcohol dependence with uncomplicated withdrawal Current Visit: Yes Status: Acute (3) Cocaine dependence Current Visit: Yes Status: Chronic Qualifiers: (4) Essential hypertension Current Visit: Yes Status: Chronic (5) HIV (human immunodeficiency virus infection) Current Visit: Yes Status: Chronic (6) Hepatitis C Current Visit: Yes Status: Chronic Qualifiers: Viral hepatitis chronicity: unspecified Hepatic coma status: without hepatic coma Qualified Code(s): B19.20 - Unspecified viral hepatitis C without hepatic coma (7) Nicotine dependence Current Visit: Yes Status: Chronic Qualifiers: Nicotine product type: cigarettes (8) Opioid dependence on agonist therapy Current Visit: Yes Status: Chronic Comment: On Suboxone 32 mg daily (9) Murmur, cardiac Current Visit: Yes Status: Chronic Cleared for Admission S - Detox or Rehab [facility] Level of Care: Medically Managed Detox Regimen/Protocol: Librium [facility] Breath Alcohol Content Breath Alcohol Content: 0 Urine Pregancy Test - Result Urine Test Results: Negative- NO Line Present Urine Drug Screen - Results Drug Screen Negative: No Urine Drug Screen Results: SHANNAN-Cocaine
[2017-12-19] MEDS ORDERED: guaiFENesin/D-METHORPHAN HB 10 ML UNIT-DOSE CUPS PO PRN (18:33)
[2017-12-19] MEDS ORDERED: hydrOXYzine PAMOATE 50 MG CAPSULE (FP) PO PRN (18:33)
[2017-12-19] MEDS ORDERED: NICOTINE POLACRILEX 2 MG GUM BC PRN (18:33)
[2017-12-19] MEDS ORDERED: P-EPHED 60MG/TRIPROLIDI 2.5MG TABLET PO PRN (18:33)
[2017-12-19] MEDS ORDERED: MAGNESIUM CITRATE 300 ML BOTTLE PO PRN (18:33)
[2017-12-19] MEDS ORDERED: MAGNESIUM HYDROX 2400MG/30ML ORAL SUSPENSION 30 ML CUP PO PRN (18:33)
[2017-12-19] MEDS ORDERED: LOPERAMIDE HCL 2 MG CAPSULE PO PRN (18:33)
[2017-12-19] MEDS ORDERED: chlordiazePOXIDE HCL 25 MG CAPSULE PO PRN (18:33)
[2017-12-19] MEDS ORDERED: MENTHOL/PHENOL 1 EACH UD MM PRN (18:33)
[2017-12-19] MEDS ORDERED: MAG HYDROX/AL HYDROX/SIMETH 30 ML UNIT-DOSE CUP PO PRN (18:33)
[2017-12-19] MEDS ORDERED: IBUPROFEN 400 MG TABLET (FP) PO PRN (18:33)
[2017-12-19] MEDS ORDERED: ACETAMINOPHEN 325 MG TABLET (FP) PO PRN (18:33)
[2017-12-19] MEDS ORDERED: chlordiazePOXIDE HCL 25 MG CAPSULE PO ONE (18:45)
[2017-12-19] MEDS: ALBUTEROL SO4 18 GM HFA INHALER IH SCH ×2 (19:54→23:19)
[2017-12-19] MEDS ORDERED: MELATONIN 5 MG TABLETS PO PRN (22:00)
[2017-12-19] MEDS ORDERED: THIAMINE HCL 100 MG TABLET (FP) PO SCH (22:00)
[2017-12-19] MEDS: chlordiazePOXIDE HCL 25 MG CAPSULE PO SCH (22:32)
[2017-12-19 23:15] LABS: URINE APPEARANCE CLEAR; URINE BILIRUBIN NEGATIVE (<2.0 mg/dL); URINE COLOR DKYELLOW; URINE GLUCOSE (UA) NEGATIVE (NEGATIVE); URINE KETONE NEGATIVE (NEGATIVE); URINE LEUK ESTERASE TRACE (NEGATIVE); URINE NITRITE NEGATIVE (NEGATIVE); URINE PROTEIN NEGATIVE (NEGATIVE); URINE UROBILINOGEN 4.0 E.U/dl mg/dL (0.2-1.0)
[2017-12-19 23:25] LABS: EPI CELLS RARE /HPF (FEW)
[2017-12-20] MEDS: ALBUTEROL SO4 18 GM HFA INHALER IH SCH ×4 (03:42→14:02)
[2017-12-20] MEDS: chlordiazePOXIDE HCL 25 MG CAPSULE PO SCH ×2 (06:43→10:13)
[2017-12-20 07:28] VITALS: TEMP 97.7
--- NOTE | 2017-12-20 09:50 | EKG ---
Test Reason : Blood Pressure : / mmHG Vent. Rate : 046 BPM Atrial Rate : 046 BPM P-R Int : 138 ms QRS Dur : 102 ms QT Int : 486 ms P-R-T Axes : 062 066 026 degrees QTc Int : 425 ms SINUS BRADYCARDIA MINIMAL VOLTAGE CRITERIA FOR LVH, MAY BE NORMAL VARIANT NON-SPECIFIC INTRA-VENTRICULAR CONDUCTION DELAY WHEN COMPARED WITH ECG OF 12-JUL-2017 16:00, NO SIGNIFICANT CHANGE WAS FOUND Confirmed by SAMANTHA GODOY, LAURA ([id number]) on 12/20/2017 9:50:18 AM Referred By: Confirmed By:LAURA SINGH MD
[2017-12-20] MEDS ORDERED: amLODIPine BESYLATE 5 MG TABLET (FP) PO SCH ×2 (10:00→22:00)
[2017-12-20] MEDS ORDERED: ABACAVIR/DOLUTEGRAVIR/LAMIVUDI (TRIUMEQ) TABLET -NF PO SCH (10:00)
[2017-12-20] MEDS ORDERED: AMLODIPINE BESYLATE PO SCH (10:00)
[2017-12-20] MEDS ORDERED: PRENATAL VITAMINS W/ FOLIC ACID TABLET (FP) PO SCH (10:00)
[2017-12-20] MEDS ORDERED: NICOTINE 21 MG/24 HOURS TOPICAL PATCH TD SCH (10:00)
[2017-12-20] MEDS ORDERED: BUPRENORPHINE/NALOXONE 8 MG/2 MG FILM PACKET SL SCH ×3 (10:00→14:00)
[2017-12-20] MEDS: BUPRENORPHINE/NALOXONE 8 MG/2 MG FILM PACKET SL SCH ×2 (10:41→14:02)
--- NOTE | 2017-12-20 12:21 | CONSULT ---
[facility] Psychiatric Consult - Data Date of interview: 12/20/17 Admission source: [facility] Identifying data: Patient is a 52 year old single female, without kids, receiving SSI, and living in a one bedroom apartment. This is one of multiple admissions for patient. Patient admitted to for alcohol and cocaine dependence. Substance Abuse History: Following information confirmed with Ms. Bradshaw: Smoking Cessation. Smoking history: Current every day smoker. Have you smoked in the past 12 months: Yes. Aproximately how many cigarettes per day: 20. Cigars Per Day: 20. Hx Chewing Tobacco Use: No. Initiated information on smoking cessation: Yes. 'Breaking Loose' booklet given: 12/19/17. - Substance & Tx. History. Hx Alcohol Use: Yes. Hx Substance Use: Yes. Substance Use Type : Alcohol, Cocaine. Hx Substance Use Treatment: Yes ([facility] June 2017). - Substances Abused. Alcohol. Route: Oral. Frequency: Daily. Amount used: liquor- 2 pints, beer- 3 six pack. Age of first use: 16. Date of Last Use: 10/06. Cocaine. Route: Inhalation. Frequency: Daily. Amount used: 5 bags. Age of first use: 16. Date of Last Use: 12/18/17 Medical History: Asthma, hypertension, Seizures (r/t ETOH 1 year ago), Hep C, HIV Psychiatric History: Patient presents as irritable and unable to provide a cohesive psychiatric history. Patient reports multiple psychiatric hospitalizations but is unable to recall the dates and locations of hospitalizations. Patient reports OPC in the [place]. Patient unable to recall her medications. As per pharmacy claims, patient's most recent prescription (2017) consist of zyprexa 10mg + Rison 300mg. Pt. informed of her medications but reports taking her medications "on and off." Patient denies h/o suicide attempt. Patient currently denies suicidal and homicidal ideation. Physical/Sexual Abuse/Trauma History: Denies. Mental Status Exam - Mental Status Exam Alert and Oriented to: Time, Place, Person Cognitive Function: Good Patient Appearance: Unkempt Mood: Irritable Affect: Mood Congruent Patient Behavior: Cooperative, Agitated Speech Pattern: Delayed Voice Loudness: Moderately Soft/Quiet Thought Process: Intact, Goal Oriented Thought Disorder: Not Present Hallucinations: Denies Suicidal Ideation: Denies Homicidal Ideation: Denies Insight/Judgement: Poor Sleep: Fair Appetite: Fair Muscle strength/Tone: Normal Gait/Station: Normal Psychiatric Findings - Problem List ([place] 1, 2,3) (1) Schizophrenia Current Visit: Yes Status: Chronic Comment: Self reports. (2) Alcohol dependence with uncomplicated withdrawal Current Visit: Yes Status: Acute (3) Cocaine dependence Current Visit: Yes Status: Acute Qualifiers: (4) Nicotine dependence Current Visit: Yes Status: Chronic Qualifiers: Nicotine product type: cigarettes (5) Opioid dependence on agonist therapy Current Visit: Yes Status: Chronic Comment: On Suboxone 32 mg daily - Initial Treatment Plan Initial Treatment Plan: Psychoeducation provided. Detoxification in progress. Will order zyprexa 5mg qhs. Pt. reports nonadherence to lithium. Benefits and side effects discussed. Verbal consent given.
--- NOTE | 2017-12-20 12:43 | PN ---
S CIWA - CIWA Score Nausea/Vomitin-Mild Nausea/No Vomiting Muscle Tremors: 3 Anxiety: 2 Agitation: 2 Paroxysmal Sweats: 1-Minimal Palms Moist Orientation: 0-Oriented Tacttile Disturbances: 1-Very Mild Itch/Numbness Auditory Disturbances: 0-None Visual Disturbances: 0-None Headache: 1-Very Mild CIWA-Ar Total Score: 11 BHS Progress Note (SOAP) Subjective: sweat tremor anxiety restlessness Objective: 12/20/17 12:44 Vital Signs Temperature 97.7 F 12/20/17 10:42 Pulse Rate 56 L 12/20/17 10:42 Respiratory Rate 18 12/20/17 10:42 Blood Pressure 153/98 12/20/17 10:42 O2 Sat by Pulse Oximetry (%) Laboratory Last Values Urine Color Dkyellow 12/19/17 19:55 Urine Appearance Clear 12/19/17 19:55 Urine pH 7.0 (5.0-8.0) 12/19/17 19:55 Ur Specific [place] 1.021 (1.001-1.035) 12/19/17 19:55 Urine Protein Negative (NEGATIVE) 12/19/17 19:55 Urine Glucose (UA) Negative (NEGATIVE) 12/19/17 19:55 Urine Ketones Negative (NEGATIVE) 12/19/17 19:55 Urine Blood Negative (NEGATIVE) 12/19/17 19:55 Urine Nitrite Negative (NEGATIVE) 12/19/17 19:55 Urine Bilirubin Negative (<2.0 mg/dL) 12/19/17 19:55 Urine Urobilinogen 4.0 e.u/dl mg/dL (0.2-1.0) H 12/19/17 19:55 Ur Leukocyte Esterase Trace (NEGATIVE) 12/19/17 19:55 Urine WBC (Auto) 8 /hpf (3-5) 12/19/17 19:55 Urine RBC (Auto) 3 /hpf (0-3) 12/19/17 19:55 Ur Epithelial Cells Rare /HPF (FEW) 12/19/17 19:55 lab noted Assessment: 12/20/17 12:45 withdrawal sx Plan: continue detox
[2017-12-20 14:15] VITALS: BP 137/72; PULSE 51
--- NOTE | 2017-12-20 14:17 | PN ---
[facility] Progress Note Note: 52 years old female admitted 12/19/17 for alcohol withdrawal sx c/o chest / pain sharp radiate to left arm and jaw report admitted to hospital 2 weeks ago for "heart problem" walk away from the hospital refused further diagnotic testings ekg bradycardia ER evaluation unknonw cause chest pain, attempted to provide information to er from 14:10-14:17 without success
--- NOTE | 2017-12-20 15:58 | DS ---
[facility] Detox Discharge Summary Admission Date: 12/19/17 Discharge Date: 12/20/17 - History Present History: Alcohol Dependence Additional Comments: 52 years old female admitted 12/19/17 for alcohol withdrawal sx insists to terminate detox regimen and leave the detox facility patient denies chest pain cardiac S1S2 RRR pulmonary clear bilaterally extremities full range of motion alert oriented x 3 no acute distress strong recommend community support self help groups and focuses on recovery - Physical Exam Results Vital Signs: Vital Signs Temperature 97.7 F 12/20/17 14:15 Pulse Rate 51 L 12/20/17 14:15 Respiratory Rate 16 12/20/17 14:15 Blood Pressure 137/72 12/20/17 14:15 O2 Sat by Pulse Oximetry (%) Pertinent Admission Physical Exam Findings: withdrawal sx Vital Signs Temperature 97.7 F 12/20/17 14:15 Pulse Rate 51 L 12/20/17 14:15 Respiratory Rate 16 12/20/17 14:15 Blood Pressure 137/72 12/20/17 14:15 O2 Sat by Pulse Oximetry (%) Laboratory Last Values Urine Color Dkyellow 12/19/17 19:55 Urine Appearance Clear 12/19/17 19:55 Urine pH 7.0 (5.0-8.0) 12/19/17 19:55 Ur Specific [place] 1.021 (1.001-1.035) 12/19/17 19:55 Urine Protein Negative (NEGATIVE) 12/19/17 19:55 Urine Glucose (UA) Negative (NEGATIVE) 12/19/17 19:55 Urine Ketones Negative (NEGATIVE) 12/19/17 19:55 Urine Blood Negative (NEGATIVE) 12/19/17 19:55 Urine Nitrite Negative (NEGATIVE) 12/19/17 19:55 Urine Bilirubin Negative (<2.0 mg/dL) 12/19/17 19:55 Urine Urobilinogen 4.0 e.u/dl mg/dL (0.2-1.0) H 12/19/17 19:55 Ur Leukocyte Esterase Trace (NEGATIVE) 12/19/17 19:55 Urine WBC (Auto) 8 /hpf (3-5) 12/19/17 19:55 Urine RBC (Auto) 3 /hpf (0-3) 12/19/17 19:55 Ur Epithelial Cells Rare /HPF (FEW) 12/19/17 19:55 lab noted - Treatment Hospital Course: Detox Protocol Followed, Responded well Patient has Accepted a Rehab Referral to: community support groups - Medication Discharge Medications: Ambulatory Orders Abacavir/Dolutegravir/Lamivudi [Triumeq Tablet] 1 each PO DAILY 07/11/17 Albuterol Sulfate Inhaler - [Ventolin HFA Inhaler -] 2 inh PO Q4H 07/11/17 Buprenorphine/Naloxone [Suboxone 8Mg/2Mg Sl Film -] 1 each SL DAILY 07/11/17 Amlodipine Besylate [Norvasc -] 5 mg PO DAILY #30 tablet 07/14/17 Divalproex *ER* [Depakote *ER* -] 500 mg PO HS #30 tablet.sa 07/14/17 Olanzapine 5 mg PO DAILY #30 tablet 07/14/17 - Diagnosis (1) Alcohol dependence with uncomplicated withdrawal Status: Acute (2) Xanax use disorder, moderate, dependence Status: Acute (3) Essential hypertension Status: Chronic (4) HIV (human immunodeficiency virus infection) Status: Chronic (5) Hepatitis C Status: Resolved Qualifiers: Viral hepatitis chronicity: unspecified Hepatic coma status: without hepatic coma Qualified Code(s): B19.20 - Unspecified viral hepatitis C without hepatic coma (6) Nicotine dependence Status: Acute Qualifiers: Nicotine product type: cigarettes Substance use status: in withdrawal Qualified Code(s): F17.213 - Nicotine dependence, cigarettes, with withdrawal - AMA Did Patient Leave Against Medical Advice: Yes
[2017-12-20] MEDS ORDERED: chlordiazePOXIDE HCL 25 MG CAPSULE PO SCH (23:00)
--- NOTE | 2017-12-21 14:40 | EKG ---
Test Reason : Blood Pressure : / mmHG Vent. Rate : 052 BPM Atrial Rate : 052 BPM P-R Int : 142 ms QRS Dur : 112 ms QT Int : 504 ms P-R-T Axes : 062 064 053 degrees QTc Int : 468 ms SINUS BRADYCARDIA MINIMAL VOLTAGE CRITERIA FOR LVH, MAY BE NORMAL VARIANT T WAVE ABNORMALITY, CONSIDER ANTERIOR ISCHEMIA PROLONGED QT ABNORMAL ECG WHEN COMPARED WITH ECG OF 19-DEC-2017 19:58, T WAVE INVERSION NOW EVIDENT IN ANTERIOR LEADS Confirmed by MD Samuel, Bayron ([id number]) on 12/21/2017 2:40:07 PM Referred By: Confirmed By:Bayron Baker MD
[2017-12-21] MEDS ORDERED: chlordiazePOXIDE 5 MG CAPSULE PO SCH (23:00)
[2017-12-22] MEDS ORDERED: chlordiazePOXIDE HCL 10 MG CAPSULE PO SCH (23:00)
== END 2017-12-20 04:05 | disposition left against medical advice (07) | DRG 770 ==
LOC: YASAS 15:35 → Y6N 17:51
PROVIDERS: ADMIT Surgery; ATTEND Surgery
PROC: HZ2ZZZZ Detoxification Services for Substance Abuse Treatment (ICD-10-PCS; principal; 2017-12-19)
DX: F11.20 Opioid dependence, uncomplicated (principal); F10.230 Alcohol dependence with withdrawal, uncomplicated; F14.20 Cocaine dependence, uncomplicated; F17.210 Nicotine dependence, cigarettes, uncomplicated; F20.9 Schizophrenia, unspecified; F31.9 Bipolar disorder, unspecified; I10 Essential (primary) hypertension; R01.1 Cardiac murmur, unspecified; Z21 Asymptomatic human immunodeficiency virus [HIV] infection status; Z86.19 Personal history of other infectious and parasitic diseases
CPT/HCPCS: 81003; 81015; 93005; 93010

== ENCOUNTER 2018-07-07 12:55 | Inpatient (IN) | payer OTHER ==
[2018-07-07 13:13] VITALS: BMI 26.9
--- NOTE | 2018-07-07 15:21 | HP ---
CIWA Score Nausea/Vomitin Muscle Tremors: 2 Anxiety: 2 Agitation: 2 Paroxysmal Sweats: 1-Minimal Palms Moist Orientation: 0-Oriented Tacttile Disturbances: 1-Very Mild Itch/Numbness Auditory Disturbances: 1-Very Mild Visual Disturbances: 0-None Headache: 2-Mild CIWA-Ar Total Score: 13 - Admission Criteria OASAS Guidelines: Admission for Medically Managed Detox: Requires at least one of the followin. CIWA greater than 12 2. Seizures within the past 24 hours 3. Delirium tremens within the past 24 hours 4. Hallucinations within the past 24 hours 5. Acute intervention needed for co occurring medical disorder 6. Acute intervention needed for co occurring psychiatric disorder 7. Severe withdrawal that cannot be handled at a lower level of care (continued vomiting, continued diarrhea, abnormal vital signs) requiring intravenous medication and/or fluids 8. Patient presents the following: CIWA greater than 12, Acute intervention needed for co-occurring med or psych disorder Admission Criteria Met: Admission criteria met Admission ROS S - HPI Chief Complaint: i need help to stop drinking alcohol,cocaine,on suboxone maintenance Allergies/Adverse Reactions: Allergies Allergy/AdvReac Type Severity Reaction Status Date / Time Penicillins Allergy Severe Hives Verified 07/07/18 15:05 History of Present Illness: this 53 years old female with alcohol,cocaine,dependence,seeking detox, withdrawal symptom,last detox [facility] 12/19/17 to 12/20/17 not completed syncope alcohol related nicotine dependence,asthma on suboxone maintenance for 1 year weight loss hepatititis c htn,asthma,pace maker for slow heart beat in03/05 [facility] schizophrenia hiv since 1971 ,non compliance nicotine dependence no significant period of sobriety seizure last 2016 Exam Limitations: No Limitations - Ebola screening Have you traveled outside of the country in the last 21 days: No Have you been sick,other than usual withdrawal symptoms: No - Review of Systems Constitutional: Loss of Appetite, Night Sweats, Changes in sleep, Weakness, Unintentional Wgt. Loss EENT: reports: Tearing, Nose Congestion Respiratory: reports: No Symptoms reported Cardiac: reports: No Symptoms Reported, Other (s/p pace maker in 03/05 for bradycardia) GI: reports: Diarrhea, Nausea, Vomiting, Abdominal cramping : reports: No Symptoms Reported Musculoskeletal: reports: Back Pain, Muscle Pain Integumentary: reports: Dryness Neuro: reports: Headache, Tremors Endocrine: reports: No Symptoms Reported Hematology: reports: No Symptoms Reported, Other (hiv non compliance) Psychiatric: reports: No Sypmtoms Reported, Judgement Intact, Mood/Affect Appropiate, Orientated x3 Patient History - Patient Medical History Hx Anemia: No Hx Asthma: Yes (nalbuterol inhaler) Hx Chronic Obstructive Pulmonary Disease (COPD): No Hx Cancer: No Hx Cardiac Disorders: No Hx Congestive Heart Failure: No Hx Hypertension: Yes (onmed) Hx Hypercholesterolemia: No Hx Pacemaker: No HX Cerebrovascular Accident: No Hx Seizures: Yes (alcohol related 1 year ago) Hx Dementia: No Hx Diabetes: No Hx Gastrointestinal Disorders: No Hx Liver Disease: Yes (Hep C) Hx Genitourinary Disorders: No Hx Sexually Transmitted Disorders: Yes (HIV since 1971, reports sompliance with meds) Hx Renal Disease (ESRD): No Hx Thyroid Disease: No Hx Human Immunodeficiency Virus (HIV): Yes Hx Hepatitis C: Yes Hx Depression: Yes (two months ago ) Hx Suicide Attempt: No Hx Bipolar Disorder: Yes Hx Schizophrenia: Yes - Patient Surgical History Past Surgical History: No Hx Neurologic Surgery: No Hx Cataract Extraction: No Hx Cardiac Surgery: No Hx Lung Surgery: No Hx Breast Surgery: No Hx Breast Biopsy: No Hx Abdominal Surgery: No Hx Appendectomy: No Hx Cholecystectomy: No Hx Genitourinary Surgery: No Hx Section: No Hx Orthopedic Surgery: No Anesthesia Reaction: No - PPD History Previous Implant?: Yes Documented Results: Negative w/o proof Implanted On Prior [facility] Admission?: Yes Date: 07/09/17 Results: 0mm PPD to be Administered?: Yes - Reproductive History Patient is a Female of Child Bearing Age (11 -55 yrs old): Yes Last Menstrual Period: 12/11/17 Patient : No - Smoking Cessation Smoking history: Current every day smoker Have you smoked in the past 12 months: Yes Aproximately how many cigarettes per day: 40 Cigars Per Day: 0 Hx Chewing Tobacco Use: No Initiated information on smoking cessation: Yes 'Breaking Loose' booklet given: 07/07/18 - Substance & Tx. History Hx Alcohol Use: Yes Hx Substance Use: Yes Substance Use Type: Alcohol, Cocaine Hx Substance Use Treatment: Yes ([facility] 12/19/17 to 12/20/17 not completed) - Substances Abused Alcohol Route: Oral Frequency: Daily Amount used: 6 pk beer Age of first use: 19 Date of Last Use: 07/07/18 Crack Route: Smoking Frequency: Daily Amount used: $60 Age of first use: 22 Date of Last Use: 07/05/18 Family Disease History - Family Disease History Family Disease History: Other: Father (unknown ), Mother (, cancer breast ) Admission Physical Exam S - Vital Signs Vital Signs: Vital Signs - 24 hr 07/07/18 13:10 Temperature 97.9 F Pulse Rate 60 Respiratory 18 Rate Blood Pressure 122/87 - Physical General Appearance: Yes: Moderate Distress, Irritable, Sweating, Anxious HEENTM: Yes: JAMES, Pharynx Normal, Tm's normal Respiratory: Yes: Within Normal Limits, Lungs Clear, Normal Breath Sounds Neck: Yes: Within Normal Limits, Supple, Trachea in good position Breast: Yes: Breast Exam Deferred Cardiology: Yes: Within Normal Limits, Regular Rhythm, Regular Rate, S1, S2, Other (pacemaker in left chest wall) Abdominal: Yes: Within Normal Limits, Normal Bowel Sounds, Non Tender, Flat, Soft Genitourinary: Yes: Within Normal Limits Back: Yes: Muscle Spasm Musculoskeletal: Yes: Back pain, Muscle Pain Extremities: Yes: Within Normal Limits, Normal Range of Motion, Tremors Neurological: Yes: securities settlement processor II-XII NML intact, Fully Oriented, Alert, Motor Strength 5/5 Integumentary: Yes: Dry Lymphatic: Yes: Within Normal Limits - Diagnostic (1) Alcohol dependence with uncomplicated withdrawal Current Visit: No Status: Acute (2) Cocaine dependence Current Visit: No Status: Acute Qualifiers: (3) Nicotine dependence Current Visit: No Status: Acute Qualifiers: Nicotine product type: cigarettes Substance use status: in withdrawal Qualified Code(s): F17.213 - Nicotine dependence, cigarettes, with withdrawal (4) Encounter for monitoring Suboxone maintenance therapy Current Visit: No Status: Chronic (5) HIV (human immunodeficiency virus infection) Current Visit: No Status: Chronic (6) Schizophrenia Current Visit: No Status: Chronic Comment: Self reports. (7) Hepatitis C Current Visit: No Status: Resolved Qualifiers: Viral hepatitis chronicity: unspecified Hepatic coma status: without hepatic coma Qualified Code(s): B19.20 - Unspecified viral hepatitis C without hepatic coma (8) History of cardiac pacemaker in situ Current Visit: Yes Status: Acute (9) Dehydration Current Visit: Yes Status: Acute Cleared for Admission [facility] - Detox or Rehab [facility] Level of Care: Medically Managed Detox Regimen/Protocol: Librium [facility] Breath Alcohol Content Breath Alcohol Content: 0.047 Urine Pregancy Test - Result Urine Test Results: Negative- NO Line Present Urine Drug Screen - Results Drug Screen Negative: No Urine Drug Screen Results: SHANNAN-Cocaine, BUP-Suboxone
[2018-07-07] MEDS ORDERED: MAG HYDROX/AL HYDROX/SIMETH 30 ML UNIT-DOSE CUP PO PRN (15:36)
[2018-07-07] MEDS ORDERED: NICOTINE POLACRILEX 2 MG GUM BC PRN (15:36)
[2018-07-07] MEDS ORDERED: ACETAMINOPHEN 325 MG TABLET (FP) PO PRN (15:36)
[2018-07-07] MEDS ORDERED: guaiFENesin/D-METHORPHAN HB 10 ML UNIT-DOSE CUPS PO PRN (15:36)
[2018-07-07] MEDS ORDERED: MENTHOL/PHENOL 1 EACH UD MM PRN (15:36)
[2018-07-07] MEDS ORDERED: MAGNESIUM HYDROX 2400MG/30ML ORAL SUSPENSION 30 ML CUP PO PRN (15:36)
[2018-07-07] MEDS ORDERED: hydrOXYzine PAMOATE 25 MG CAPSULE (FP) PO PRN (15:36)
[2018-07-07] MEDS ORDERED: IBUPROFEN 400 MG TABLET (FP) PO PRN (15:36)
[2018-07-07] MEDS ORDERED: chlordiazePOXIDE HCL 25 MG CAPSULE PO PRN (15:36)
[2018-07-07] MEDS ORDERED: LOPERAMIDE HCL 2 MG CAPSULE PO PRN (15:36)
[2018-07-07] MEDS ORDERED: MAGNESIUM CITRATE 300 ML BOTTLE PO PRN (15:36)
[2018-07-07] MEDS ORDERED: P-EPHED 60MG/TRIPROLIDI 2.5MG TABLET PO PRN (15:36)
[2018-07-07] MEDS ORDERED: ALBUTEROL SO4 8 GM HFA INHALER IH PRN (15:39)
[2018-07-07] MEDS: chlordiazePOXIDE HCL 25 MG CAPSULE PO SCH ×2 (17:55→22:41)
[2018-07-07] MEDS: NICOTINE 21 MG/24 HOURS TOPICAL PATCH TD SCH (17:59)
[2018-07-07] MEDS ORDERED: MELATONIN 5 MG TABLETS PO PRN (22:00)
[2018-07-07] MEDS ORDERED: THIAMINE HCL 100 MG TABLET (FP) PO SCH (22:00)
[2018-07-07] MEDS: BUPRENORPHINE/NALOXONE 8 MG/2 MG FILM PACKET SL SCH (22:42)
[2018-07-08 03:14] LABS: URINE APPEARANCE SLCLOUDY; URINE BILIRUBIN NEGATIVE (<2.0 mg/dL); URINE COLOR YELLOW; URINE GLUCOSE (UA) NEGATIVE (NEGATIVE); URINE KETONE NEGATIVE (NEGATIVE); URINE LEUK ESTERASE 3+ (NEGATIVE); URINE NITRITE NEGATIVE (NEGATIVE); URINE PROTEIN NEGATIVE (NEGATIVE); URINE UROBILINOGEN NEGATIVE mg/dL (0.2-1.0)
[2018-07-08 03:20] LABS: EPI CELLS RARE /HPF (FEW); URINE BACTERIA RARE /hpf (NONE SEEN); URINE MUCUS RARE
[2018-07-08] MEDS: BUPRENORPHINE/NALOXONE 8 MG/2 MG FILM PACKET SL SCH (06:55)
[2018-07-08] MEDS: chlordiazePOXIDE HCL 25 MG CAPSULE PO SCH ×2 (06:55→10:30)
[2018-07-08 07:15] VITALS: TEMP 97.7
[2018-07-08 09:32] VITALS: BP 131/75; PULSE 62
[2018-07-08] MEDS ORDERED: amLODIPine BESYLATE 5 MG TABLET (FP) PO SCH (10:00)
[2018-07-08] MEDS ORDERED: PRENATAL VITAMINS W/ FOLIC ACID TABLET (FP) PO SCH (10:00)
[2018-07-08 10:04] LABS: HEMATOCRIT 37.4 % (32.4-45.2); HEMOGLOBIN 11.8 GM/dL (10.7-15.3); MCHC 31.7 g/dl (32.0-36.0); MEAN CELL VOLUME 101.1 fl (80-96); PLATELET COUNT 66 K/MM3 (134-434); RDW 12.8 % (11.6-15.6); WHITE BLOOD COUNT 2.7 K/mm3 (4.0-10.0)
--- NOTE | 2018-07-08 10:11 | PN ---
S CIWA - CIWA Score Nausea/Vomitin-No Nausea/No Vomiting Muscle Tremors: 4-Moderate,w/Arms Extend Anxiety: 2 Agitation: 3 Paroxysmal Sweats: 1-Minimal Palms Moist Orientation: 1-Uncertain about Date Tacttile Disturbances: 1-Very Mild Itch/Numbness Auditory Disturbances: 1-Very Mild Visual Disturbances: 0-None Headache: 1-Very Mild CIWA-Ar Total Score: 14 [facility] Progress Note (SOAP) Subjective: sweat tremor anxiety restlessness low energy trouble sleep at night continue suboxone 8-2 mg tid encourage to bring in own ART medication Objective: 07/08/18 10:11 Vital Signs Temperature 97.7 F 07/08/18 09:32 Pulse Rate 62 07/08/18 09:32 Respiratory Rate 18 07/08/18 09:32 Blood Pressure 131/75 07/08/18 09:32 O2 Sat by Pulse Oximetry (%) Laboratory Last Values WBC 2.7 K/mm3 (4.0-10.0) L 07/08/18 07:00 RBC 3.70 M/mm3 (3.60-5.2) 07/08/18 07:00 Hgb 11.8 GM/dL (10.7-15.3) 07/08/18 07:00 Hct 37.4 % (32.4-45.2) 07/08/18 07:00 MCV 101.1 fl (80-96) H 07/08/18 07:00 MCH 32.0 pg (25.7-33.7) 07/08/18 07:00 MCHC 31.7 g/dl (32.0-36.0) L 07/08/18 07:00 RDW 12.8 % (11.6-15.6) 07/08/18 07:00 Plt Count 66 K/MM3 (134-434) L D 07/08/18 07:00 MPV 12.0 fl (7.5-11.1) H 07/08/18 07:00 Urine Color Yellow 07/07/18 23:53 Urine Appearance Slcloudy 07/07/18 23:53 Urine pH 6.0 (5.0-8.0) 07/07/18 23:53 Ur Specific [place] 1.017 (1.010-1.035) 07/07/18 23:53 Urine Protein Negative (NEGATIVE) 07/07/18 23:53 Urine Glucose (UA) Negative (NEGATIVE) 07/07/18 23:53 Urine Ketones Negative (NEGATIVE) 07/07/18 23:53 Urine Blood Negative (NEGATIVE) 07/07/18 23:53 Urine Nitrite Negative (NEGATIVE) 07/07/18 23:53 Urine Bilirubin Negative (<2.0 mg/dL) 07/07/18 23:53 Urine Urobilinogen Negative mg/dL (0.2-1.0) 07/07/18 23:53 Ur Leukocyte Esterase 3+ (NEGATIVE) H 07/07/18 23:53 Urine WBC (Auto) 3 /hpf (3-5) 07/07/18 23:53 Urine RBC (Auto) 2 /hpf (0-3) 07/07/18 23:53 Ur Epithelial Cells Rare /HPF (FEW) 07/07/18 23:53 Urine Bacteria Rare /hpf (NONE SEEN) 07/07/18 23:53 Urine Mucus Rare 07/07/18 23:53 lab noted repeat cbc 07/08/18 10:15 health teaching on ART adherence Assessment: 07/08/18 10:15 withdrawal sx 07/08/18 10:15 HIV low wbc Plan: continue detox recommend to bring in ART medication
[2018-07-08] MEDS ORDERED: SULFAMETHOXAZOLE/TRIMETHOPRIM 800MG/160MG D.S. TABLET PO SCH (10:30)
[2018-07-08] MEDS: NICOTINE 21 MG/24 HOURS TOPICAL PATCH TD SCH (10:32)
--- NOTE | 2018-07-08 10:34 | EKG ---
Test Reason : Blood Pressure : / mmHG Vent. Rate : 081 BPM Atrial Rate : 081 BPM P-R Int : 172 ms QRS Dur : 106 ms QT Int : 406 ms P-R-T Axes : 082 065 050 degrees QTc Int : 471 ms Atrial-paced rhythm ABNORMAL ECG WHEN COMPARED WITH ECG OF 20-DEC-2017 13:51, ELECTRONIC ATRIAL PACEMAKER HAS REPLACED SINUS RHYTHM VENT. RATE HAS INCREASED BY 29 BPM Confirmed by Ismael Pate MD ([id number]) on 07/08/2018 10:34:10 AM Referred By: Confirmed By:Ismael Pate MD
[2018-07-08 10:35] LABS: ALBUMIN 3.3 g/dl (3.4-5.0); ALK PHOS 269 U/L (45-117); ANION GAP 10 MMOL/L (8-16); BILIRUBIN,TOTAL 0.4 mg/dL (0.2-1); BLOOD UREA NITROGEN 12 mg/dL (7-18); CALCIUM 8.4 mg/dL (8.5-10.1); CHLORIDE 108 mmol/L (98-107); CO2 26 mmol/L (21-32); CREATININE 0.7 mg/dL (0.55-1.3); GLUCOSE,RANDOM 96 mg/dL (74-106); POTASSIUM 3.1 mmol/L (3.5-5.1); SGOT/AST 163 U/L (15-37); SGPT/ALT 211 U/L (13-61); SODIUM 144 mmol/L (136-145); TOT PROT 6.8 g/dl (6.4-8.2)
[2018-07-08] MEDS ORDERED: POTASSIUM CHLORIDE TABS 20 MEQ TABLET.ER (FP) PO SCH (11:15)
--- NOTE | 2018-07-08 12:04 | DS ---
[facility] Detox Discharge Summary Admission Date: 07/07/18 Discharge Date: 07/08/18 - History Present History: Alcohol Dependence Additional Comments: 53 years old female admitted on 07/07/18 for alcohol wtihdrawal sx imsists to leave the detox unit that her daughter has ca is in the hospital discussed uti and low K+ patient agrees to cone picker K+ supplement and levequin for uti medications from the preferred pharmacy Pertinent Past History: patient agrees to return to suboxone program for uti K+ serum level and liver enzyme - Physical Exam Results Vital Signs: Vital Signs Temperature 97.7 F 07/08/18 09:32 Pulse Rate 62 07/08/18 09:32 Respiratory Rate 18 07/08/18 09:32 Blood Pressure 131/75 07/08/18 09:32 O2 Sat by Pulse Oximetry (%) Pertinent Admission Physical Exam Findings: alcohol withdrawal sx Vital Signs Temperature 97.7 F 07/08/18 09:32 Pulse Rate 62 07/08/18 09:32 Respiratory Rate 18 07/08/18 09:32 Blood Pressure 131/75 07/08/18 09:32 O2 Sat by Pulse Oximetry (%) Laboratory Last Values WBC 2.7 K/mm3 (4.0-10.0) L 07/08/18 07:00 RBC 3.70 M/mm3 (3.60-5.2) 07/08/18 07:00 Hgb 11.8 GM/dL (10.7-15.3) 07/08/18 07:00 Hct 37.4 % (32.4-45.2) 07/08/18 07:00 MCV 101.1 fl (80-96) H 07/08/18 07:00 MCH 32.0 pg (25.7-33.7) 07/08/18 07:00 MCHC 31.7 g/dl (32.0-36.0) L 07/08/18 07:00 RDW 12.8 % (11.6-15.6) 07/08/18 07:00 Plt Count 66 K/MM3 (134-434) L D 07/08/18 07:00 MPV 12.0 fl (7.5-11.1) H 07/08/18 07:00 Sodium 144 mmol/L (136-145) 07/08/18 07:00 Potassium 3.1 mmol/L (3.5-5.1) L 07/08/18 07:00 Chloride 108 mmol/L (98-107) H 07/08/18 07:00 Carbon Dioxide 26 mmol/L (21-32) 07/08/18 07:00 Anion Gap 10 MMOL/L (8-16) 07/08/18 07:00 BUN 12 mg/dL (7-18) 07/08/18 07:00 Creatinine 0.7 mg/dL (0.55-1.3) 07/08/18 07:00 Creat Clearance w eGFR > 60 (>60) 07/08/18 07:00 Random Glucose 96 mg/dL (74-106) 07/08/18 07:00 Calcium 8.4 mg/dL (8.5-10.1) L 07/08/18 07:00 Total Bilirubin 0.4 mg/dL (0.2-1) 07/08/18 07:00 AST 163 U/L (15-37) H 07/08/18 07:00 ALT 211 U/L (13-61) H 07/08/18 07:00 Alkaline Phosphatase 269 U/L (45-117) H 07/08/18 07:00 Total Protein 6.8 g/dl (6.4-8.2) 07/08/18 07:00 Albumin 3.3 g/dl (3.4-5.0) L 07/08/18 07:00 Urine Color Yellow 07/07/18 23:53 Urine Appearance Slcloudy 07/07/18 23:53 Urine pH 6.0 (5.0-8.0) 07/07/18 23:53 Ur Specific [place] 1.017 (1.010-1.035) 07/07/18 23:53 Urine Protein Negative (NEGATIVE) 07/07/18 23:53 Urine Glucose (UA) Negative (NEGATIVE) 07/07/18 23:53 Urine Ketones Negative (NEGATIVE) 07/07/18 23:53 Urine Blood Negative (NEGATIVE) 07/07/18 23:53 Urine Nitrite Negative (NEGATIVE) 07/07/18 23:53 Urine Bilirubin Negative (<2.0 mg/dL) 07/07/18 23:53 Urine Urobilinogen Negative mg/dL (0.2-1.0) 07/07/18 23:53 Ur Leukocyte Esterase 3+ (NEGATIVE) H 07/07/18 23:53 Urine WBC (Auto) 3 /hpf (3-5) 07/07/18 23:53 Urine RBC (Auto) 2 /hpf (0-3) 07/07/18 23:53 Ur Epithelial Cells Rare /HPF (FEW) 07/07/18 23:53 Urine Bacteria Rare /hpf (NONE SEEN) 07/07/18 23:53 Urine Mucus Rare 07/07/18 23:53 lab noted low K+ low platelet uti - Treatment Hospital Course: Detox Protocol Followed, Responded well Patient has Accepted a Rehab Referral to: [facility] meeting groups and meetings - Medication Discharge Medications: Ambulatory Orders Abacavir/Dolutegravir/Lamivudi [Triumeq 600-50-300 mg Tablet] 1 each PO DAILY Albuterol Sulfate Inhaler - [Ventolin HFA Inhaler -] 2 inh PO Q4H 07/11/17 Buprenorphine/Naloxone [Suboxone 8Mg/2Mg Sl Film -] 3 strip SL DAILY 07/11/17 Amlodipine Besylate [Norvasc -] 5 mg PO DAILY #30 tablet 07/14/17 Divalproex *ER* [Depakote *ER* -] 500 mg PO HS #30 tablet.sa 07/14/17 Olanzapine 5 mg PO DAILY #30 tablet 07/14/17 Potassium Chloride [K-Dur -] 20 meq PO BID #7 tablet.er 07/08/18 levoFLOXacin [Levaquin -] 250 mg PO DAILY@0600 #7 tablet 07/08/18 - Diagnosis (1) Liver enzyme elevation Current Visit: Yes Status: Chronic (2) Thrombocytopenia Current Visit: Yes Status: Chronic (3) Nicotine dependence Current Visit: Yes Status: Acute Qualifiers: Nicotine product type: cigarettes Substance use status: in withdrawal Qualified Code(s): F17.213 - Nicotine dependence, cigarettes, with withdrawal (4) Encounter for monitoring Suboxone maintenance therapy Current Visit: Yes Status: Chronic (5) HIV (human immunodeficiency virus infection) Current Visit: Yes Status: Chronic (6) Alcohol dependence with uncomplicated withdrawal Current Visit: Yes Status: Acute (7) Essential hypertension Current Visit: Yes Status: Chronic - AMA Did Patient Leave Against Medical Advice: Yes
[2018-07-08] MEDS ORDERED: chlordiazePOXIDE HCL 25 MG CAPSULE PO SCH (17:00)
[2018-07-09] MEDS ORDERED: chlordiazePOXIDE 5 MG CAPSULE PO SCH (17:00)
[2018-07-10] MEDS ORDERED: chlordiazePOXIDE HCL 10 MG CAPSULE PO SCH (17:00)
== END 2018-07-08 12:07 | disposition left against medical advice (07) | DRG 770 ==
LOC: YASAS 12:55 → Y6N 15:49
PROVIDERS: ADMIT Neuromusculoskeletal Medicine & OMM; ATTEND Neuromusculoskeletal Medicine & OMM
PROC: HZ2ZZZZ Detoxification Services for Substance Abuse Treatment (ICD-10-PCS; principal; 2018-07-07)
DX: F10.230 Alcohol dependence with withdrawal, uncomplicated (principal); F14.20 Cocaine dependence, uncomplicated; F17.213 Nicotine dependence, cigarettes, with withdrawal; F31.9 Bipolar disorder, unspecified; F25.9 Schizoaffective disorder, unspecified; Z21 Asymptomatic human immunodeficiency virus [HIV] infection status; E87.6 Hypokalemia; E86.0 Dehydration; D69.6 Thrombocytopenia, unspecified; I10 Essential (primary) hypertension; J45.909 Unspecified asthma, uncomplicated; N89.8 Other specified noninflammatory disorders of vagina; R94.5 Abnormal results of liver function studies; N39.0 Urinary tract infection, site not specified; Z51.81 Encounter for therapeutic drug level monitoring; R63.4 Abnormal weight loss; Z68.36 Body mass index [BMI] 36.0-36.9, adult; Z95.0 Presence of cardiac pacemaker
CPT/HCPCS: 36415; 80053; 81003; 81015; 85027; 86593; 93005; 93010